=== PATIENT | male | born 1950 | race Caucasian/White ===

== ENCOUNTER → 2018-01-23 | Outpatient (REF) | payer MEDICARE | LOC: M SMT 12:46 | DX: R97.20 Elevated prostate specific antigen [PSA] (principal) | CPT/HCPCS: 87086 ==

== ENCOUNTER → 2018-02-05 | Outpatient (CLI) | payer MEDICARE | LOC: M SMT PRO 09:32 | DX: R97.20 Elevated prostate specific antigen [PSA] (principal) | CPT/HCPCS: G0416 ==

== ENCOUNTER → 2018-08-08 | Outpatient (REF) | payer MEDICARE ==
[2018-08-11 00:06] LABS: PSA % FREE 14.9 % (.); PSA FREE 1.07 ng/mL; PSA TOTAL 7.2 ng/mL (0.0-4.0)
== END ==
LOC: M LABDRAW1 16:04
PROVIDERS: ATTEND Urology
DX: R97.20 Elevated prostate specific antigen [PSA] (principal)

== ENCOUNTER → 2018-09-19 | Outpatient (REF) | payer MEDICARE ==
[2018-09-19 16:27] LABS: BLOOD UREA NITROGEN 14 MG/DL (7-18); CREATININE FOR GFR 0.88 MG/DL (0.70-1.30); GLOMERULAR FILTRATION RATE > 60.0 (>49)
== END ==
LOC: M LABDRAW1 15:36
PROVIDERS: ATTEND Orthopaedic Surgery
DX: Z01.812 Encounter for preprocedural laboratory examination (principal)

== ENCOUNTER → 2019-02-11 | Outpatient (CLI) | payer MEDICARE ==
[~2019-02-11] MED LIST: B COTAB3 PO; BEE1CAP PO; D200CAP2 PO; FINA5TAB2 PO; GLUC1CAP10 PO; IBUP200C25 PO; KRIL300C2 PO; SAW1CAPS2 PO; TAMS1CAP17 PO; VITA1CAP21 PO; super beta prostate PO
--- NOTE | 2019-02-11 14:19 | ECGEPIP ---
[facility] Test Date: 2019-02-11 Pat Name: DAVIE NELSON Department: Room: - Gender: Male Parish Visitor: JOY : 1950 Requested By: Laura Cohn Order Number: [id number] Reading MD: Yecenia Partida Measurements Intervals [place] Rate: 76 P: 47 NH: 176 QRS: -10 QRSD: 97 T: -8 QT: 378 QTc: 427 Interpretive Statements SINUS RHYTHM WITH SINUS ARRHYTHMIA STT-WAVE ABNORMALITY Left axis deviation PRWP NO PRIOR Electronically Signed on 02-11-2019 14:19:24 EDT by Yecenia Partida
--- NOTE | 2019-02-11 14:35 | REP ---
PA and lateral chest: There are no comparisons. Lung arguelles are clear. Cardiac size is normal. The rachel and mediastinum are unremarkable. The right hemidiaphragm is elevated. The rachel, mediastinum, skeletal structures are unremarkable. Impression: Elevated right hemidiaphragm. Otherwise, negative PA and lateral chest. Electronically Signed by Kirby Flyod MD 02/11/2019 02:26 P
[2019-02-11 14:40] LABS: HEMOGLOBIN 17.9 g/dl (13.5-17.5); MEAN CORPUSCULAR HEMOGLOBIN 33.4 pg (27.0-33.0); MEAN CORPUSCULAR HGB CONC 35.1 g/dl (32.0-36.5); MEAN CORPUSCULAR VOLUME 95.1 fl (80.0-96.0); PLATELET COUNT, AUTOMATED 217 10^3/uL (150-450); RED BLOOD COUNT 5.36 10^6/uL (4.30-6.10); WHITE BLOOD COUNT 8.7 10^3/uL (4.0-10.0)
[2019-02-11 14:52] LABS: INR 1.01
[2019-02-11 14:57] LABS: ALBUMIN 3.6 GM/DL (3.2-5.2); ALT/SGPT 42 U/L (12-78); BILIRUBIN,TOTAL 0.6 MG/DL (0.2-1.0); BLOOD UREA NITROGEN 17 MG/DL (7-18); CALCIUM LEVEL 9.3 MG/DL (8.8-10.2); CARBON DIOXIDE LEVEL 32 MEQ/L (21-32); CHLORIDE LEVEL 102 MEQ/L (98-107); CREATININE FOR GFR 0.81 MG/DL (0.70-1.30); GLOMERULAR FILTRATION RATE > 60.0 (>49); GLUCOSE, FASTING 90 MG/DL (70-100); SODIUM LEVEL 141 MEQ/L (136-145); TOTAL PROTEIN 6.8 GM/DL (6.4-8.2)
[2019-02-11 15:07] LABS: ERYTHROCYTE SEDIMENTATION RATE 2 mm/hr (0-20)
== END ==
LOC: M LAB 13:15
PROVIDERS: ATTEND Orthopaedic Surgery
DX: M17.11 Unilateral primary osteoarthritis, right knee (principal)

== ENCOUNTER → 2019-02-19 | Outpatient (CLI) | payer MEDICARE ==
[~2019-02-19] MED LIST changes: +PERC5TAB12 PO; +XARE10TA PO
[2019-02-21 14:09] LABS: PSA % FREE 10.2 % (.); PSA FREE 0.48 ng/mL; PSA TOTAL 4.7 ng/mL (0.0-4.0)
== END ==
LOC: M SMT 14:31
PROVIDERS: ATTEND Nurse Practitioner Family
DX: R97.20 Elevated prostate specific antigen [PSA] (principal)

== ENCOUNTER 2019-02-26 07:45 | Inpatient (IN) | payer MEDICARE ==
--- NOTE | 2019-02-24 11:35 | HPE ---
DATE OF ANTICIPATED ADMISSION: 02/26/2019 ATTENDING PHYSICIAN: Dr. Laura Malik CHIEF COMPLAINT: Right knee pain and stiffness. HISTORY: The patient is a 68-year-old male with progressively worsening right knee pain and stiffness. He has failed to improve with conservative measures. He continues to have symptoms with weightbearing activities and activities of daily living. The patient has consented for an elective right total knee arthroplasty with Dr. Malik for his continued symptoms. Medical optimization pending with Dr. Marshall. CURRENT MEDICATIONS: - glucosamine chondroitin 1500 mg complex - finasteride daily - B12 daily - fish oil daily - saw palmetto three times daily - tamsulosin 4 mg daily - vitamin D3 daily ALLERGIES: There are No known drug allergies CHRONIC MEDICAL CONDITIONS: Benign prostatic hypertrophy. FAMILY HISTORY: Noncontributory. SOCIAL HISTORY: The patient is a former smoker and occasionally uses alcohol. PAST SURGICAL HISTORY: None. REVIEW OF SYSTEMS: The patient denies fevers, chills, nausea, vomiting or diarrhea. Denies chest pain, shortness of breath, lightheadedness, dizziness or headaches. Denies abdominal pain. He denies any recent upper respiratory or urinary tract infection symptoms. He continues to have right knee pain with weightbearing activities and activities of daily living. PHYSICAL EXAMINATION: GENERAL: Well-nourished, well-developed male who appears to be in no apparent distress. He is alert, oriented and cooperative. Mood and affect are appropriate. VITAL SIGNS: Height 5 feet 10 inches, weight 216.4 pounds, temperature 99.3, blood pressure 140/80, heart rate 92, respirations 14. HEART: Regular rate and rhythm. LUNGS: Clear to auscultation bilaterally. ABDOMEN: Bowel sounds are present. Abdomen is soft and nontender to palpation. MUSCULOSKELETAL: Right knee exhibits no gross abnormalities. His skin is intact. There is quite a bit of tenderness to palpation along the medial joint line with a fairly large firm nodule present. The patient can extend knee to about 5 degrees and flex to 100 degrees. Right lower extremity strength is 5/5. No hip irritability elicited with range of motion testing. Calf is soft, nontender to palpation with no palpable cords noted. He is neurovascularly intact distally. LABORATORY DATA: Chest x-ray: Elevated right hemidiaphragm. Otherwise, negative PA and lateral chest. Right knee x-ray notable for end-stage degenerative changes. EKG: Sinus rhythm with sinus arrhythmia with ST-T wave abnormality and left axis deviation. Comprehensive metabolic profile fasting glucose 90, BUN 17, creatinine 0.81, GFR greater than 60, sodium 141, potassium 4.0, chloride 102, carbon dioxide 32, anion gap decreased at 7, calcium 9.3, AST 18, ALT 42, alkaline phosphatase 62, total bilirubin 0.6, total protein 6.8, albumin 3.6, albumin-globulin ratio 1.13. Prothrombin time 13, INR 1.01. Complete blood count ESR 2, WBC 8.7, RBC 5.36, hemoglobin elevated at 17.3, hematocrit 51, platelets 217. IMPRESSION: Right knee degenerative arthritis with x-rays notable for end-stage degenerative changes. PLAN: The patient has consented for an elective right total knee arthroplasty with Dr. Malik. Medical optimization pending with Dr. Marshall. VILLA
[~2019-02-26] VITALS: Ht 177.8 cm; Wt 97.7 kg
[~2019-02-26 07:45] MED LIST changes: +ACETAMINOPHEN 500 MG TAB PO ONE; +LIDOCAINE 1% MDV 20ML VIAL SQ PRN; +LR 1,000 ML IV ONE; -PERC5TAB12 PO; -XARE10TA PO; +ceFAZolin SOD 2 GM in IV 1 EA IV ONE
[2019-02-26] MEDS ORDERED: fentaNYL 100 MCG/2 ML INJECTION (J3010) As Ordered ONE ×2 (09:48→12:15)
[2019-02-26] MEDS ORDERED: MIDAZOLAM INJ 2 MG/2 ML VIAL (J2250) As Ordered ONE ×2 (09:48→12:15)
[2019-02-26] MEDS ORDERED: EPINEPHrine INJ 1 MG/ML 1ML VIAL As Ordered ONE (09:50)
[2019-02-26] MEDS ORDERED: BUPIVACAINE HCL 0.25% 10 ML VIAL As Ordered ONE (09:50)
[2019-02-26] MEDS ORDERED: TRANEXAMIC ACID 100 MG/ML 10ML VIAL As Ordered ONE (09:50)
[2019-02-26] MEDS ORDERED: ceFAZolin 1GM INJ (J0690 PER 500MG) As Ordered ONE (09:50)
[2019-02-26] MEDS ORDERED: BUPIVACAINE LIPOSOME/PF 1.3% 20ML VIAL (13.3MG/ML)(EXPAREL)(C9290 PER1MG) As Ordered ONE (09:51)
[2019-02-26] MEDS: fentaNYL 100 MCG/2 ML INJECTION (J3010) IV SCH ×2 (10:10→10:16)
[2019-02-26] MEDS ORDERED: dexameTHASONE 10 MG/1 ML VIAL PRES.FREE (J1100) ONE (10:47)
[2019-02-26] MEDS ORDERED: ROPIvacaine 0.5% 30 ML INJECTION (J2795 PER 1MG) ONE (10:47)
[2019-02-26] MEDS ORDERED: MIDAZOLAM INJ 2 MG/2 ML VIAL (J2250) IV ONE (11:00)
[2019-02-26] MEDS ORDERED: propofoL 200 MG/20 ML VIAL As Ordered ONE ×2 (12:15→13:02)
[2019-02-26] MEDS ORDERED: ePHEDrine SULFATE 25 MG/5 ML(5MG/ML) SYRINGE As Ordered ONE (12:38)
[2019-02-26] MEDS ORDERED: fentaNYL 100 MCG/2 ML INJECTION (J3010) IV PRN (14:15)
[2019-02-26] MEDS ORDERED: ONDANSETRON 4MG/2ML VIAL (J2405) IV PRN (14:15)
[2019-02-26] MEDS ORDERED: FLEET ENEMA PR PRN (14:15)
[2019-02-26] MEDS ORDERED: LR 1,000 ML IV SCH ×2 (14:15)
[2019-02-26] MEDS ORDERED: PERCOCET 5MG/325MG TAB PO PRN (14:15)
[2019-02-26] MEDS ORDERED: ACETAMINOPHEN TAB 650MG DOSE (2X325MG) PO PRN (14:15)
[2019-02-26] MEDS ORDERED: HYDROMORPHONE HCL 0.5 MG/ 0.5 ML SYRINGE (J1170 PER 1) IV PRN ×2 (14:15)
--- NOTE | 2019-02-26 14:48 | REP ---
RIGHT KNEE SERIES: TWO VIEWS. HISTORY: Postop. FINDINGS: The patient is status post right knee arthroplasty. Arthroplasty components are well aligned. There is some intra-articular and periarticular postoperative gas. Anterior skin virginie are seen. Posterior vascular calcification is noted. IMPRESSION: Right knee arthroplasty. Electronically Signed by Earl Ivory MD 02/26/2019 03:28 P
[2019-02-26 15:00] VITALS: BP 125/81
[2019-02-26 15:30] VITALS: BP 125/83
[2019-02-26] MEDS ORDERED: ONDANSETRON 4 MG TAB (S0181) PO PRN (16:15)
[2019-02-26 16:30] VITALS: BP 127/94
[2019-02-26] MEDS: FINASTERIDE 5 MG TAB PO SCH (16:33)
[2019-02-26] MEDS: TAMSULOSIN 0.4 MG CAP PO SCH (16:33)
[2019-02-26 17:30] VITALS: BP 127/95
--- NOTE | 2019-02-26 17:52 | CR ---
DATE OF CONSULTATION: 02/26/2019 CONSULTATION FOR: Dr. Lalit Malik PRIMARY CARE PROVIDER: Dr. Kaushik Marshall in [place] Medical evaluation of Louis Royal, a 68-year-old who had total knee arthroplasty today. Reviewed the patient's medical records as available from Dr. Marshall. Medical history is essentially uncomplicated. History of hypertension and elevated prostate-specific antigen (PSA). HOME MEDICATIONS: - vitamin D 2000 units daily - finasteride 5 mg daily - tamsulosin 0.4 mg daily - B12 at 500 mg daily - over-the counter vitamins SURGICAL HISTORY: He had a colonoscopy in the past. FAMILY HISTORY: Diabetes, heart disease, and prostate cancer. SOCIAL HISTORY: Quit smoking a few years ago after over a 20 pack-year history. REVIEW OF SYSTEMS: No chest pain, shortness of breath, palpitations, fevers, chills, rectal bleeding, epistaxis, hematuria. He does have BPH symptoms with slow stream, and his PSA has apparently gone from 7 up to 8 and has a urology referral in process by his primary care provider. PHYSICAL EXAMINATION: VITAL SIGNS: Per flow sheet. HEENT: Unremarkable. LUNGS: Clear. HEART: Regular without murmur. ABDOMEN: Soft, nontender without masses. Moves arms and legs with equal strength. IMPRESSION: 1. BPH. Early ambulation when feasible advised. Continue his Flomax 0.4 mg daily, finasteride 5 mg daily. 2. History of hypertension. He is on no antihypertensives at this point. Hospital group will follow him postoperatively.
[2019-02-26] MEDS: PERCOCET 5MG/325MG TAB PO PRN ×2 (18:05→22:44)
[2019-02-26 18:30] VITALS: BP_SYST 127; BP_SYST 130; BP_DIAS 94; BP_DIAS 95
[2019-02-26] MEDS: ceFAZolin SOD 2 GM in IV 1 EA IV SCH (20:39)
[2019-02-26 22:13] VITALS: BP 156/90
[2019-02-27 02:11] VITALS: BP 156/93
[2019-02-27] MEDS: ceFAZolin SOD 2 GM in IV 1 EA IV SCH ×2 (04:05→11:40)
[2019-02-27] MEDS: PERCOCET 5MG/325MG TAB PO PRN ×2 (04:54→09:21)
[2019-02-27 06:06] LABS: HEMATOCRIT 47.4 % (42.0-52.0); HEMOGLOBIN 16.5 g/dl (13.5-17.5); MEAN CORPUSCULAR HEMOGLOBIN 33.7 pg (27.0-33.0); MEAN CORPUSCULAR HGB CONC 34.8 g/dl (32.0-36.5); MEAN CORPUSCULAR VOLUME 96.7 fl (80.0-96.0); PLATELET COUNT, AUTOMATED 172 10^3/uL (150-450); WHITE BLOOD COUNT 15.3 10^3/uL (4.0-10.0)
[2019-02-27 06:26] LABS: BLOOD UREA NITROGEN 13 MG/DL (7-18); CALCIUM LEVEL 8.5 MG/DL (8.8-10.2); CARBON DIOXIDE LEVEL 32 MEQ/L (21-32); CHLORIDE LEVEL 103 MEQ/L (98-107); CREATININE FOR GFR 0.78 MG/DL (0.70-1.30); GLOMERULAR FILTRATION RATE > 60.0 (>49); GLUCOSE, FASTING 119 MG/DL (70-100); POTASSIUM SERUM 4.4 MEQ/L (3.5-5.1); SODIUM LEVEL 139 MEQ/L (136-145)
[2019-02-27 06:56] VITALS: BP 155/92
[2019-02-27] MEDS ORDERED: PERC5TAB12 PO (07:18)
[2019-02-27] MEDS ORDERED: XARE10TA PO (07:18)
[2019-02-27] MEDS ORDERED: MOM 30ML SUSPENSION UDC PO SCH (09:00)
[2019-02-27] MEDS ORDERED: MIRALAX *UNIT DOSE* 17GM PACKET PO SCH (09:00)
[2019-02-27] MEDS: TAMSULOSIN 0.4 MG CAP PO SCH (09:20)
[2019-02-27] MEDS: FINASTERIDE 5 MG TAB PO SCH (09:20)
--- NOTE | 2019-02-27 11:17 | RO ---
DATE OF PROCEDURE: 02/26/2019 PREPROCEDURE DIAGNOSIS: Right knee degenerative arthritis. Right knee mass medial aspect of right knee. POSTPROCEDURE DIAGNOSIS: Right knee degenerative arthritis. Right knee mass medial aspect of right knee. PROCEDURE: 1. Right total knee arthroplasty using a Size 6 Attune cruciate retaining femoral component with a Size 7 tibial tray and a 6 mm rotating platform polyethylene insert and a 38 mm polyethylene button. All components were cemented. Prosthesis made by [employer]. 2. Excisional biopsy of a large medial mass of the right knee. SURGEON: Dr. Laura Malik GROUNDS MANAGER: Mr. Chris Doran COMPLICATIONS: None. SPECIMEN: Material from the mass which appeared to be a ganglion type cyst. Otherwise the specimens were the joint surface. ESTIMATED BLOOD LOSS: 20 mL. DESCRIPTION OF PROCEDURE: Antibiotics were given intravenously preoperatively and a successful spinal anesthetic was induced. A tourniquet placed on the right upper thigh and not inflated. The right lower extremity was carefully prepped and draped in the usual sterile fashion, elevated after appropriate time out and the tourniquet was inflated. A longitudinal incision was made for a medial parapatellar arthrotomy approach to the knee. Bovie cautery used to coagulate crossing vessels. Subperiosteal dissection around the proximal medial portion of the tibia was performed as well as the proximal lateral portion of the tibia. The patella was everted, the knee flexed. The anterior cruciate ligament (ACL) debrided. The drill placed down the center of the femoral canal, followed by the intramedullary enrique and the distal femoral cutting jig set at 9 mm resection level at 5 degrees valgus for a right knee. The block was pinned into position. Distal femoral cut performed. AP sizing jig measured for a size 6. Then 3 degrees of external rotation dialed in, drills placed, 4-in-1 block applied. Anterior, posterior, and chamfer cuts performed. The jig for the notchplasty was applied and the notchplasty performed. We then exposed the proximal tibia and used the extramedullary alignment jig to estimate being parallel to the mechanical axis of the tibia, referencing off the medial tibial condyle at 4 mm. The block was pinned into position. Secondary check of the extramedullary enrique confirmed we appeared to be parallel to the mechanical axis. A proximal tibial osteotomy was thus performed. The lamina gas or petroleum operator was placed medially and we performed a completion lateral meniscectomy with debridement of posterior lateral osteophytes. We then placed the lamina gas or petroleum operator laterally and performed a completion medial meniscectomy with debridement of posterior medial osteophytes. The sizing block fit nicely at 6 mm with good symmetry both in flexion and in extension. We then exposed the proximal tibia and sized for a size 7 tibial tray, which was pinned into positioned, followed by the reamer and broach, followed by the trial polyethylene. Then the femoral component was applied. We brought the knee into extension. He had nice stability to varus and valgus stress testing. We everted the patella of the knee in extension and performed a patellar osteotomy and sized for a 38 button. Lug holes were drilled, the trial placed and patellofemoral tracking was anatomic. At this point, I removed all the trial components and then addressed the cyst. At this point, I palpated along the medial soft tissues just off the previously subperiosteal dissected proximal medial tibia and made a small longitudinal incision just anterior the medial collateral ligament (MCL). By incising this area, I came down into a large cystic structure that was filled with gelatinous material. This was removed with a combination of rongeurs and curettes and digital palpation as well as suction irrigation. Some of this material was sent for formal pathologic diagnosis. This well decompressed the medial cyst. It was likely some type of a variant of a popliteal cyst. It was gelatinous material consistent with a ganglion. I copiously irrigated and then at this point we placed Exparel in the subperiosteal tissues around the distal femur and the proximal tibia as my nurse's assistant, Andreea Payne, mixed the cement on the back table and I prepared the bony surfaces for cementing with a copious amount of pulsatile lavage irrigant solution. Mr. Doran was also critical to the success of this difficult surgery by helping with appropriate soft tissue manipulations, retraction, helped to manipulate the knee, helped to close the wound, and mixed the cement amongst many other tasks to allow me to perform the operation smoothly, efficiently and safely. Once all the bony surfaces were thoroughly dry, we cemented the tibial tray, removed excess cement, placed the polyethylene, cemented the femoral component, removed excess cement, brought the knee into extension, cemented the patellar button, and held it with a clamp, then removed excess cement, and held the knee in extension while we copiously irrigated the knee joint until the cement had hardened. We placed tranexamic acid in the depths of the wound and closed the arthrotomy with interrupted #1 PDS sutures and then a running double-armed #1 Stratafix used to close the capsule. Then the tourniquet was released. We irrigated between layers. We closed the deep subdermal tissues with interrupted #2-0 PDS suture and the skin was closed with virginie, covered by an Optifoam dressing and a dry sterile bulky dressing. Then he was transferred to the recovery room in stable condition. There were no intraoperative complications.
[2019-02-27] MEDS ORDERED: RIVAROXABAN 10 MG TAB (XARELTO) PO SCH (18:00)
--- NOTE | 2019-03-04 10:48 | DSES ---
DATE OF ADMISSION: 02/26/2019 DATE OF DISCHARGE: 02/27/2019 ADMISSION DIAGNOSIS: Osteoarthritis right knee. OTHER DIAGNOSES: Hypertension. DISCHARGE DIAGNOSIS: Osteoarthritis right knee status post right total knee arthroplasty. OPERATION PERFORMED: Right total knee arthroplasty. HISTORY: This is a pleasant 68-year-old male patient with progressively worsening right knee pain and stiffness. He failed to improve with conservative management. He is admitted for elective knee replacement on the right side. HOSPITAL COURSE: The patient was admitted on day of surgery underwent a right total knee arthroplasty, which was uneventful. He did well in the postoperative period. His hospital course was without complications. He was up with physical therapy per their protocol. His pain was controlled. On day of discharge, he was doing well, weightbearing as tolerated with his right lower extremity. He will move his right knee to prevent stiffness. He will use CINDY stockings for 30 days postoperative for deep vein thrombosis (DVT) prophylaxis. He will also use Xarelto 10 mg per their protocol for DVT prophylaxis. He will use oral pain medications for pain control and resume his preoperative medications and diet. He was given instructions to include, but not limited to wound monitoring, activity limitations. Please refer the medical record further details.
== END 2019-02-27 13:00 | disposition home or self-care (01) | DRG 470 ==
LOC: M OR 07:45 → M MS5PR 14:50
PROVIDERS: ADMIT Orthopaedic Surgery; ATTEND Orthopaedic Surgery
PROC: 0SBC0ZX Excision of Right Knee Joint, Open Approach, Diagnostic (ICD-10-PCS; 2019-02-26)
PROC: 0SRC0J9 Replacement of Right Knee Joint with Synthetic Substitute, Cemented, Open Approach (ICD-10-PCS; principal; 2019-02-26 10:50)
DX: M17.11 Unilateral primary osteoarthritis, right knee (principal); I10 Essential (primary) hypertension; M67.461 Ganglion, right knee; N40.1 Benign prostatic hyperplasia with lower urinary tract symptoms; R39.198 Other difficulties with micturition; Z87.891 Personal history of nicotine dependence; Z79.899 Other long term (current) drug therapy

== ENCOUNTER → 2019-03-05 | Outpatient (CLI) | payer MEDICARE ==
[~2019-03-05] MED LIST changes: -ACETAMINOPHEN 500 MG TAB PO ONE; -LIDOCAINE 1% MDV 20ML VIAL SQ PRN; -LR 1,000 ML IV ONE; +PERC5TAB12 PO; +XARE10TA PO; -ceFAZolin SOD 2 GM in IV 1 EA IV ONE
--- NOTE | 2019-03-05 11:51 | REP ---
Right lower extremity deep vein duplex ultrasound: The patient had right knee surgery 1 week ago. The deep veins demonstrate normal compression, normal Doppler color flow and normal Doppler waveforms with respiration and augmentation from the popliteal vein to the common femoral vein. Impression: There is no deep vein thrombus. Electronically Signed by Kirby Floyd MD 03/05/2019 11:43 A
== END ==
LOC: M RAD 09:29
PROVIDERS: ATTEND Orthopaedic Surgery
DX: M79.604 Pain in right leg (principal)

== ENCOUNTER → 2019-03-21 | Outpatient (REF) | payer MEDICARE ==
[2019-03-21 15:34] LABS: BASO # 0.1 10^3/uL (0.0-0.2); BASO % 0.8 % (0.0-1.0); EOS # 0.3 10^3/uL (0.0-0.5); EOS % 2.7 % (0.0-3.0); HEMATOCRIT 46.6 % (42.0-52.0); HEMOGLOBIN 15.4 g/dl (13.5-17.5); LYMPH # 1.5 10^3/uL (1.5-5.0); LYMPH % 14.8 % (24.0-44.0); MEAN CORPUSCULAR HEMOGLOBIN 31.9 pg (27.0-33.0); MEAN CORPUSCULAR VOLUME 96.5 fl (80.0-96.0); MONO % 9.7 % (0.0-5.0); NEUTROPHILS % 71.3 % (36.0-66.0); PLATELET COUNT, AUTOMATED 322 10^3/uL (150-450); RED BLOOD COUNT 4.83 10^6/uL (4.30-6.10); WHITE BLOOD COUNT 9.8 10^3/uL (4.0-10.0)
[2019-03-21 16:29] LABS: ERYTHROCYTE SEDIMENTATION RATE 21 mm/hr (0-20)
== END ==
LOC: M LABDRAW1 11:52
DX: Z96.651 Presence of right artificial knee joint (principal)

== ENCOUNTER → 2019-05-21 | Outpatient (CLI) | payer MEDICARE ==
--- NOTE | 2019-05-21 16:13 | REP ---
Two-view chest: 05/21/2019. Indications. Wheezing. Comparison: 02/11/2019. Findings: The lungs are clear. There is no pleural effusion or pneumothorax. Elevated right hemidiaphragm is redemonstrated. The cardiomediastinal silhouette is unremarkable. Mild dextroscoliosis of the thoracic spine is noted. Impression: No acute cardiopulmonary process. Electronically Signed by Mehran Smith DO 05/21/2019 04:04 P
== END ==
LOC: M WUC 15:50
PROVIDERS: ATTEND Nurse Practitioner Family
DX: R06.2 Wheezing (principal)

== ENCOUNTER → 2019-07-10 | Outpatient (REF) | payer MEDICARE ==
[2019-07-10 17:57] LABS: HEMATOCRIT 52.2 % (42.0-52.0); HEMOGLOBIN 17.8 g/dl (13.5-17.5); MEAN CORPUSCULAR HEMOGLOBIN 31.7 pg (27.0-33.0); MEAN CORPUSCULAR HGB CONC 34.1 g/dl (32.0-36.5); PLATELET COUNT, AUTOMATED 246 10^3/uL (150-450); RED BLOOD COUNT 5.61 10^6/uL (4.30-6.10); WHITE BLOOD COUNT 9.5 10^3/uL (4.0-10.0)
[2019-07-10 17:59] LABS: ALBUMIN 3.8 GM/DL (3.2-5.2); ALT/SGPT 46 U/L (12-78); BILIRUBIN,TOTAL 0.6 MG/DL (0.2-1.0); BLOOD UREA NITROGEN 12 MG/DL (7-18); CALCIUM LEVEL 9.3 MG/DL (8.8-10.2); CARBON DIOXIDE LEVEL 33 MEQ/L (21-32); CHLORIDE LEVEL 101 MEQ/L (98-107); CREATININE FOR GFR 0.82 MG/DL (0.70-1.30); GLOMERULAR FILTRATION RATE > 60.0 (>49); GLUCOSE, FASTING 89 MG/DL (70-100); POTASSIUM SERUM 4.3 MEQ/L (3.5-5.1); SODIUM LEVEL 139 MEQ/L (136-145); TOTAL PROTEIN 7.1 GM/DL (6.4-8.2)
== END ==
LOC: M SFHCLERA 13:55
PROVIDERS: ATTEND Physician Assistant
DX: R03.0 Elevated blood-pressure reading, without diagnosis of hypertension (principal)

== ENCOUNTER → 2019-07-16 | Outpatient (CLI) | payer MEDICARE | LOC: M PLALAB 13:01 | PROVIDERS: ATTEND Nurse Practitioner Family | DX: R97.20 Elevated prostate specific antigen [PSA] (principal) ==

== ENCOUNTER → 2019-07-22 | Outpatient (REF) | payer MEDICARE | LOC: M SMT 16:55 | PROVIDERS: ATTEND Nurse Practitioner Family | DX: R97.20 Elevated prostate specific antigen [PSA] (principal); Z79.899 Other long term (current) drug therapy | CPT/HCPCS: 51798; 87086; G0463 ==

== ENCOUNTER → 2019-07-31 | Outpatient (CLI) | payer MEDICARE ==
--- NOTE | 2019-07-31 12:13 | REP ---
Bilateral lower extremity duplex venous ultrasound: Reflux study. History: Rule out venous reflux or DVT. Findings: The deep veins are anechoic and fully compressible from the groin to the popliteal fossa in both lower extremities on two-dimensional scanning. Color flow and spectral Doppler interrogation are unremarkable. There is no evidence of DVT. Reflux findings: In the right lower extremity, there is venous reflux visible only in the standing position in the mid and distal segments of the greater saphenous vein. There is mild reflux greater than 0.5 seconds in duration in the anterior accessory greater saphenous vein. The greater saphenous vein measures 10 mm in AP dimension proximally, 5 mm in AP dimension at midthigh, and 5 mm in AP dimension at the knee. The lesser saphenous vein shows no evidence of reflux and measures 2 mm in dimension. On the left there is minimal reflux in the deep system in the common femoral vein and through the superficial femoral vein and popliteal vein. No reflux is visible in the greater saphenous vein. The greater saphenous vein dimensions are 9 mm, 5 mm, and 4 mm respectively, proximally, mid thigh, and distally. The lesser saphenous vein is 3 mm in diameter and shows no observable reflux. Impression: Minimal deep system reflux on the left. The greater saphenous vein reflux at mid and distal levels on the right. Electronically Signed by Earl Ivory MD 07/31/2019 01:08 P
== END ==
LOC: M RAD 09:52
PROVIDERS: ATTEND Family Medicine
DX: I87.2 Venous insufficiency (chronic) (peripheral) (principal); M79.89 Other specified soft tissue disorders

== ENCOUNTER → 2019-08-13 | Outpatient (CLI) | payer MEDICARE ==
--- NOTE | 2019-08-13 16:40 | REP ---
KUB ABDOMEN AND PELVIS: KUB film of abdomen and pelvis performed. Bowel gas pattern is normal with no evidence of obstruction. No dilated small bowel loops are seen. Mild scattered vascular calcifications are seen in the pelvis. There are mild degenerative changes of the spine and hips. IMPRESSION: Normal bowel gas pattern. Electronically Signed by Kirby Smith MD 08/14/2019 10:33 A
--- NOTE | 2019-08-13 16:42 | REP ---
CHEST, TWO VIEWS: PA and lateral views of the chest are performed and compared to prior study of 05/21/2019. There is mild elevation of the right hemidiaphragm, unchanged. There is mild thickening of the fissures posteriorly, unchanged. Heart is not enlarged. There is calcification and tortuosity of the thoracic aorta. Mediastinal silhouette is unchanged. There are mild degenerative changes of the spine. IMPRESSION: Stable chronic findings without evidence of acute pulmonary disease. Electronically Signed by Kirby Smith MD 08/14/2019 10:33 A
== END ==
LOC: M LRY 12:24
PROVIDERS: ATTEND Family Medicine
DX: R06.02 Shortness of breath (principal)

== ENCOUNTER → 2019-10-23 | Outpatient (CLI) | payer MEDICARE | LOC: M LAB 16:07 | PROVIDERS: ATTEND Nurse Practitioner Family | DX: R97.20 Elevated prostate specific antigen [PSA] (principal) ==

== ENCOUNTER → 2020-02-24 | Outpatient (CLI) | payer MEDICARE ==
--- NOTE | 2020-03-16 14:16 | REP ---
LUMBAR SPINE SERIES: CLINICAL: Lower back pain. TECHNIQUE: AP, lateral, bilateral oblique and coned down views of the lumbosacral spine. FINDINGS: Retrolisthesis at the L5-S1 level is suggested of approximately 12 mm, but incompletely evaluated due to positioning. There is normal alignment and lordosis from the lower thoracic through L5 level. Underlying age related osteopenia and moderate multilevel degenerative changes including endplate sclerosis with marginal spurring and disc space narrowing primarily noted at L4- 5. The L5-S1 level appears completely obliterated and with retrolisthesis as suggested above. No further acute fracture/compression injury or subluxation noted. IMPRESSION: Findings suggest grade 2 retrolisthesis at the L5-S1 level, although evaluation is limited by technique and positioning. Correlation is warranted and if necessary, MRI should be considered for further investigation. MTDD
== END ==
LOC: M LRY 15:12
PROVIDERS: ATTEND Family Medicine
DX: M51.36 Other intervertebral disc degeneration, lumbar region (principal); M54.5 Low back pain

== ENCOUNTER → 2020-08-16 | Outpatient (CLI) | payer MEDICARE, OTHER ==
--- NOTE | 2020-08-16 14:59 | REP ---
INDICATION: PARESTHESIA . COMPARISON: None. TECHNIQUE: AP, lateral, flexion/extension, and open-mouth views of the cervical spine FINDINGS: Osteopenia and moderate to advanced multilevel degenerative spondylosis. Alignment is maintained. No acute fracture/compression injury or subluxation. IMPRESSION: Osteopenia and moderate to advanced multilevel degenerative spondylosis. <Electronically signed by Carlos Smith > 08/16/20 [id number]
[2020-08-16 15:05] LABS: APPEARANCE, URINE CLEAR (CLEAR); BACTERIA, URINE AUTO NEGATIVE (NEGATIVE); BILIRUBIN, URINE AUTO NEGATIVE (NEGATIVE); BLOOD, URINE BLOOD NEGATIVE (NEGATIVE); COLOR, URINE YELLOW (YELLOW); GLUCOSE, URINE (UA) AUTO NEGATIVE (NEGATIVE); KETONE, URINE AUTO NEGATIVE (NEGATIVE); LEUKOCYTE ESTERASE, URINE AUTO TRACE (NEGATIVE); NITRITE, URINE AUTO NEGATIVE (NEGATIVE); PROTEIN, URINE AUTO NEGATIVE (NEGATIVE); RBC, URINE AUTO 2 /HPF (0-3); SPECIFIC GRAVITY URINE AUTO 1.012 (1.002-1.035); SQUAMOUS EPITHELIAL CELL UR AU 0 /HPF (0-6); UROBILINOGEN, URINE AUTO 0.2 mg/dL (0.0-2.0); WBC, URINE AUTO 1 /HPF (0-3)
[2020-08-16 15:08] LABS: BASO # 0.1 10^3/uL (0.0-0.2); BASO % 1.1 % (0.0-1.0); EOS # 0.4 10^3/uL (0.0-0.5); EOS % 4.2 % (0.0-3.0); HEMATOCRIT 50.8 % (42.0-52.0); HEMOGLOBIN 17.5 g/dl (13.5-17.5); LYMPH # 1.6 10^3/uL (1.5-5.0); LYMPH % 17.7 % (24.0-44.0); MEAN CORPUSCULAR HEMOGLOBIN 32.1 pg (27.0-33.0); MEAN CORPUSCULAR HGB CONC 34.4 g/dl (32.0-36.5); MONO # 1.1 10^3/uL (0.0-0.8); MONO % 12.7 % (2.0-8.0); NEUTROPHILS # 5.6 10^3/uL (1.5-8.5); NEUTROPHILS % 63.7 % (36.0-66.0); PLATELET COUNT, AUTOMATED 204 10^3/uL (150-450); RED BLOOD COUNT 5.46 10^6/uL (4.30-6.10); WHITE BLOOD COUNT 8.8 10^3/uL (4.0-10.0)
[2020-08-16 15:33] LABS: BLOOD UREA NITROGEN 15 MG/DL (7-18); CALCIUM LEVEL 9.4 MG/DL (8.8-10.2); CARBON DIOXIDE LEVEL 32 MEQ/L (21-32); CHLORIDE LEVEL 103 MEQ/L (98-107); GLOMERULAR FILTRATION RATE > 60.0 (>42); GLUCOSE, FASTING 81 MG/DL (70-100); POTASSIUM SERUM 4.1 MEQ/L (3.5-5.1); SODIUM LEVEL 138 MEQ/L (136-145)
[2020-08-16 15:43] LABS: CREATININE, URINE 77.7 MG/DL; MALB URINE SIEMENS < 5.0 MG/L; MAU/CREAT RATIO 6.4 MCG/MG (0.0-30.0)
[2020-08-18 15:07] LABS: Lyme Disease IgG/IgM Antibodie <0.91 ISR (0.00-0.90); Lyme Disease IgM Ab Quantitati <0.80 index (0.00-0.79)
== END ==
LOC: M LAB 14:06
PROVIDERS: ATTEND Family Medicine
DX: I10 Essential (primary) hypertension (principal); W57.XXXA Bitten or stung by nonvenomous insect and other nonvenomous arthropods, initial encounter; R20.2 Paresthesia of skin; M47.812 Spondylosis without myelopathy or radiculopathy, cervical region

== ENCOUNTER → 2020-09-09 | Outpatient (CLI) | payer OTHER ==
[2020-09-14 00:08] LABS: PSA % FREE 11.1 % (.); PSA FREE 0.5 ng/mL; PSA TOTAL 4.5 ng/mL (0.0-4.0)
== END ==
LOC: M LAB 13:20
PROVIDERS: ATTEND Nurse Practitioner Family
DX: R97.20 Elevated prostate specific antigen [PSA] (principal)
CPT/HCPCS: 36415; 84154; G0463

== ENCOUNTER → 2021-05-11 | Outpatient (CLI) | payer OTHER ==
[~2021-05-11] MED LIST changes: +ACET-910 PO; +D31000TA2 PO; +HYDR-3713 PO; +LOSA25TA13 PO; +LUTE20CA11 PO; +OMEG350C PO; +OSTE5TAB PO; +RA S160C PO; +testosterone booster
[2021-05-16 23:07] LABS: PSA % FREE 11.3 % (.); PSA FREE 0.53 ng/mL; PSA TOTAL 4.7 ng/mL (0.0-4.0)
== END ==
LOC: M LAB 16:18
PROVIDERS: ATTEND Urology
DX: R97.20 Elevated prostate specific antigen [PSA] (principal)
CPT/HCPCS: 36415; 84154; G0463

== ENCOUNTER → 2021-05-17 | Outpatient (CLI) | payer OTHER | LOC: M RAD 13:45 | PROVIDERS: ATTEND Family Medicine | DX: M85.88 Other specified disorders of bone density and structure, other site (principal); M50.321 Other cervical disc degeneration at C4-C5 level; R20.2 Paresthesia of skin; R20.0 Anesthesia of skin ==

== ENCOUNTER → 2021-05-17 | Outpatient (CLI) | payer OTHER ==
[2021-05-17 15:40] LABS: HEMATOCRIT 51.8 % (42.0-52.0); HEMOGLOBIN 17.7 g/dl (13.5-17.5); MEAN CORPUSCULAR HEMOGLOBIN 32.5 pg (27.0-33.0); MEAN CORPUSCULAR HGB CONC 34.2 g/dl (32.0-36.5); PLATELET COUNT, AUTOMATED 200 10^3/uL (150-450); RED BLOOD COUNT 5.45 10^6/uL (4.30-6.10)
[2021-05-17 15:50] LABS: INR 1.03; PROTHROMBIN TIME 13.9 SECONDS (12.7-14.5)
[2021-05-17 16:16] LABS: ALBUMIN 3.6 GM/DL (3.2-5.2); ALT/SGPT 41 U/L (12-78); BILIRUBIN,TOTAL 0.6 MG/DL (0.2-1.0); BLOOD UREA NITROGEN 15 MG/DL (7-18); CALCIUM LEVEL 9.4 MG/DL (8.8-10.2); CARBON DIOXIDE LEVEL 32 MEQ/L (21-32); CHLORIDE LEVEL 102 MEQ/L (98-107); GLOMERULAR FILTRATION RATE > 60.0 (>42); GLUCOSE, FASTING 84 MG/DL (70-100); POTASSIUM SERUM 3.8 MEQ/L (3.5-5.1); SODIUM LEVEL 140 MEQ/L (136-145); TOTAL PROTEIN 7.1 GM/DL (6.4-8.2)
[2021-05-17 16:36] LABS: ERYTHROCYTE SEDIMENTATION RATE 6 mm/hr (0-20)
== END ==
LOC: M RAD 13:34
PROVIDERS: ATTEND Orthopaedic Surgery
DX: Z01.818 Encounter for other preprocedural examination (principal); M16.12 Unilateral primary osteoarthritis, left hip; M85.88 Other specified disorders of bone density and structure, other site; M50.321 Other cervical disc degeneration at C4-C5 level; R20.2 Paresthesia of skin; R20.0 Anesthesia of skin

== ENCOUNTER → 2021-05-28 | Outpatient (CLI) | payer OTHER ==
[~2021-05-28] MED LIST changes: -ACET-910 PO; -HYDR-3713 PO; -LOSA25TA13 PO; +LOSA25TA14 PO; -LUTE20CA11 PO; -OMEG350C PO; -OSTE5TAB PO; -RA S160C PO; -testosterone booster
== END ==
LOC: M LABSMTC 09:53
PROVIDERS: ATTEND Anesthesiology
DX: Z01.812 Encounter for preprocedural laboratory examination (principal)

== ENCOUNTER 2021-06-02 09:15 | Day surgery (SDC) | payer OTHER ==
[~2021-06-02] VITALS: Ht 177.8 cm; Wt 102.1 kg
[~2021-06-02 09:15] MED LIST changes: +DUOVISC (0.50ML VISCOAT/0.85ML PROVISC) OPHTH KIT As Ordered ONE; +LIDOCAINE 1% SDV 5ML VIAL As Ordered ONE; +LR 1,000 ML IV SCH; +MAXITROL OPHTH SUSP 5 ML As Ordered ONE; +UNRESOLVED CLARIFICATION ENTRY XX SCH
[2021-06-02] MEDS ORDERED: XARE10TA PO (09:27)
[2021-06-02] MEDS ORDERED: HYDR-3713 PO (09:27)
[2021-06-02] MEDS: TETRACAINE 0.5% OPHTH SOLN 4ML OD SCH ×2 (09:53→09:54)
[2021-06-02] MEDS: CYCLOPENTOLATE 1% OPHTH SOLN 2 ML BTL OD SCH ×3 (09:54→10:19)
[2021-06-02] MEDS: FLURBIPROFEN 0.03% OPHTH SOLN 2.5 ML OD SCH ×3 (09:54→10:19)
[2021-06-02] MEDS: PHENYLEPHRINE 2.5% OPHTH SOL 2ML OD SCH ×3 (09:54→10:19)
[2021-06-02] MEDS ORDERED: MIDAZOLAM INJ 2MG/2ML VIAL (J2250 PER 1MG) As Ordered ONE (10:11)
[2021-06-02] MEDS ORDERED: fentaNYL 100 MCG/2 ML INJECTION (J3010) As Ordered ONE (10:12)
[2021-06-02] MEDS ORDERED: MAXITROL OPHTH SUSP 5 ML As Ordered ONE ×2 (11:09→11:27)
[2021-06-02 12:00] VITALS: BP 155/87
--- NOTE | 2021-06-02 16:03 | ROOPDOC ---
[facility] Report Of Operation Report of Operation DATE OF PROCEDURE: 06/02/21 PREPROCEDURE DIAGNOSES: Cataract right eye. POSTPROCEDURE DIAGNOSES: Same. PROCEDURE PERFORMED: Cataract extraction with intraocular lens implantation right eye. SURGEON: Rashi Akhtar MD DRAIN CLEANER PLUMBER: None ANESTHESIA: Local ESTIMATED BLOOD LOSS: None. COMPLICATIONS: None. SPECIMENS REMOVED: None DESCRIPTION OF PROCEDURE: The patient was brought to the operating room and prepped and draped in the usual sterile fashion and an eyelid speculum was inserted in the right eye. A paracentesis was made and the anterior chamber was inflated with non-preserved lidocaine. This was followed by injection of Viscoat. A groove was made in the temporal clear cornea which was tunneled forward with the crescent blade and the anterior chamber was entered with a 2.75 keratome. The cystotome was used to make an incision in the center of the capsule and a continuous curvilinear capsulorhexis was created. The lens was hydrodissected until it was found to rotate freely within the capsular bag. Phacoemulsification was then used to remove the lens in its entirety. Irrigation and aspiration were used to remove residual cortical material. The anterior chamber and capsular bag were reinflated with Provisc and a 20.0 diopter SN60AT lens was injected into the capsular bag using the [place] injector. The lens was dialed into place using the [place] hook. Irrigation and aspiration were used to remove residual viscoelastic. The wound was stromally hydrated until it was found to be watertight and the eye was at an appropriate pressure. The eyelid speculum was removed from the eye and Maxitrol drops were placed over the right eye. The patient was transferred to the recovery room in stable condition and will follow up tomorrow. The total CDE was 21.0 RASHI AKHTAR MD Jun 02, 2021 16:03
== END 2021-06-02 12:14 | disposition home or self-care (01) ==
LOC: M SDC 09:15
PROVIDERS: ATTEND Ophthalmology
DX: H25.9 Unspecified age-related cataract (principal); I49.9 Cardiac arrhythmia, unspecified; I10 Essential (primary) hypertension; N40.0 Benign prostatic hyperplasia without lower urinary tract symptoms; Z87.81 Personal history of (healed) traumatic fracture; Z79.899 Other long term (current) drug therapy
CPT/HCPCS: 66984; J2250; J3010; V2632

== ENCOUNTER → 2021-07-23 | Outpatient (CLI) | payer OTHER ==
[~2021-07-23] MED LIST changes: +ACET-910 PO; -DUOVISC (0.50ML VISCOAT/0.85ML PROVISC) OPHTH KIT As Ordered ONE; +HYDR-3713 PO; -LIDOCAINE 1% SDV 5ML VIAL As Ordered ONE; +LOSA25TA13 PO; -LOSA25TA14 PO; -LR 1,000 ML IV SCH; +LUTE20CA11 PO; -MAXITROL OPHTH SUSP 5 ML As Ordered ONE; +OMEG350C PO; +OSTE5TAB PO; +RA S160C PO; -UNRESOLVED CLARIFICATION ENTRY XX SCH; +testosterone booster
== END ==
LOC: M LABSMTC 11:11
PROVIDERS: ATTEND Anesthesiology
DX: Z01.812 Encounter for preprocedural laboratory examination (principal); Z11.52 Encounter for screening for COVID-19

== ENCOUNTER 2021-07-28 11:27 | Day surgery (SDC) | payer OTHER ==
[~2021-07-28] VITALS: Ht 177.8 cm; Wt 100.9 kg
[~2021-07-28 11:27] MED LIST changes: +LIDOCAINE 1% SDV 5ML VIAL As Ordered ONE; +LR 1,000 ML IV SCH; +MIDAZOLAM INJ 2MG/2ML VIAL (J2250 PER 1MG) As Ordered ONE; +PHENYLEPHRINE HCL 10 % OPHTH. SOL 5ML OS ONE; +TOBRADEX OPHTH SUSP 2.5 ML As Ordered ONE; +fentaNYL 100 MCG/2 ML INJECTION As Ordered ONE
[2021-07-28] MEDS ORDERED: TETRACAINE 0.5% OPHTH SOLN 4ML OS SCH (11:30)
[2021-07-28] MEDS ORDERED: PHENYLEPHRINE 2.5% OPHTH SOL 2ML OS SCH (11:30)
[2021-07-28] MEDS ORDERED: CYCLOPENTOLATE 1% OPHTH SOLN 2 ML BTL OS SCH (11:30)
[2021-07-28] MEDS ORDERED: FLURBIPROFEN 0.03% OPHTH SOLN 2.5 ML OS SCH (11:30)
[2021-07-28] MEDS ORDERED: hydrALAZINE 20MG/ML 1ML VIAL (J0360 PER 20MG) As Ordered ONE (13:31)
[2021-07-28] MEDS ORDERED: DUOVISC (0.50ML VISCOAT/0.85ML PROVISC) OPHTH KIT As Ordered ONE (13:44)
[2021-07-28] MEDS ORDERED: LABETALOL 100MG/20ML VIAL As Ordered ONE (13:48)
[2021-07-28] MEDS ORDERED: ACETYLCHOLINE OPHTH SOLN 1% 2ML (MIOCHOL-E) As Ordered ONE (13:56)
[2021-07-28 14:30] VITALS: BP 123/73
== END 2021-07-28 15:17 | disposition home or self-care (01) ==
LOC: M SDC 11:27
PROVIDERS: ATTEND Ophthalmology
DX: H25.12 Age-related nuclear cataract, left eye (principal); I10 Essential (primary) hypertension; M19.90 Unspecified osteoarthritis, unspecified site; Z79.01 Long term (current) use of anticoagulants; Z79.899 Other long term (current) drug therapy
CPT/HCPCS: 66984; J0360; J2250; J3010

== ENCOUNTER → 2022-05-22 | Outpatient (CLI) | payer OTHER ==
[~2022-05-22] MED LIST changes: -D31000TA2 PO; -LIDOCAINE 1% SDV 5ML VIAL As Ordered ONE; -LR 1,000 ML IV SCH; -MIDAZOLAM INJ 2MG/2ML VIAL (J2250 PER 1MG) As Ordered ONE; -PHENYLEPHRINE HCL 10 % OPHTH. SOL 5ML OS ONE; -TOBRADEX OPHTH SUSP 2.5 ML As Ordered ONE; +VITA100093 PO; -fentaNYL 100 MCG/2 ML INJECTION As Ordered ONE
[2022-05-23 17:08] LABS: PSA TOTAL 2.9 ng/mL (0.0-4.0)
== END ==
LOC: M LAB 08:22
PROVIDERS: ATTEND Urology
DX: N40.0 Benign prostatic hyperplasia without lower urinary tract symptoms (principal)

== ENCOUNTER → 2022-11-02 | Outpatient (CLI) | payer OTHER | LOC: M RAD 07:37 | PROVIDERS: ATTEND Family Medicine | DX: F17.220 Nicotine dependence, chewing tobacco, uncomplicated (principal); I77.811 Abdominal aortic ectasia ==

== ENCOUNTER → 2022-12-08 | Outpatient (CLI) | payer OTHER ==
[2022-12-08 15:08] LABS: BASO # 0.1 10^3/uL (0.0-0.2); BASO % 0.8 % (0.0-1.0); EOS # 0.2 10^3/uL (0.0-0.5); EOS % 2.3 % (0.0-3.0); HEMATOCRIT 51.2 % (42.0-52.0); HEMOGLOBIN 17.7 g/dl (13.5-17.5); LYMPH # 1.6 10^3/uL (1.5-5.0); LYMPH % 16.2 % (24.0-44.0); MEAN CORPUSCULAR HEMOGLOBIN 32.6 pg (27.0-33.0); MEAN CORPUSCULAR HGB CONC 34.6 g/dl (32.0-36.5); MEAN CORPUSCULAR VOLUME 94.3 fl (80.0-96.0); MONO # 0.8 10^3/uL (0.0-0.8); MONO % 7.9 % (2.0-8.0); NEUTROPHILS # 7.1 10^3/uL (1.5-8.5); NEUTROPHILS % 72.5 % (36.0-66.0); PLATELET COUNT, AUTOMATED 235 10^3/uL (150-450); RED BLOOD COUNT 5.43 10^6/uL (4.30-6.10); WHITE BLOOD COUNT 9.7 10^3/uL (4.0-10.0)
[2022-12-08 15:38] LABS: ALBUMIN 3.6 G/DL (3.2-5.2); ALKALINE PHOSPHATASE 68 U/L (46-116); ALT/SGPT 29 U/L (7.0-40); AST/SGOT 11 U/L (<34); BILIRUBIN,TOTAL 0.6 MG/DL (0.3-1.2); BLOOD UREA NITROGEN 19 MG/DL (9-23); CALCIUM LEVEL 9.4 MG/DL (8.3-10.6); CARBON DIOXIDE LEVEL 33 MMOL/L (20-31); CHLORIDE LEVEL 101 MMOL/L (98-107); CHOLESTEROL LEVEL 193 MG/DL (<200); CHOLESTEROL RISK RATIO 3.75 (<5); CREATININE FOR GFR 0.87 MG/DL (0.70-1.30); GLOMERULAR FILTRATION RATE > 60.0 (>42); GLUCOSE, FASTING 109 MG/DL (74-106); HDL CHOLESTEROL 51.4 MG/DL (>40); NON-HDL-C 141.6 MG/DL; POTASSIUM SERUM 3.7 MMOL/L (3.5-5.1); SODIUM LEVEL 139 MMOL/L (136-145); TOTAL PROTEIN 6.7 G/DL (5.7-8.2); TRIGLYCERIDES LEVEL 158 MG/DL (<150)
[2022-12-08 16:15] LABS: HEMOGLOBIN A1c 5.4 % (4.0-6.0)
== END ==
LOC: M LAB 14:39
PROVIDERS: ATTEND Family Medicine
DX: Z79.899 Other long term (current) drug therapy (principal); E66.9 Obesity, unspecified

== ENCOUNTER → 2024-03-27 | Outpatient (REF) | payer OTHER | LOC: M SFHCLERA 15:58 | PROVIDERS: ATTEND Family Medicine | DX: Z00.00 Encounter for general adult medical examination without abnormal findings (principal) ==

== ENCOUNTER → 2024-04-01 | Outpatient (CLI) | payer OTHER ==
[2024-04-01 16:49] LABS: BASO # 0.1 10^3/uL (0.0-0.2); BASO % 1.3 % (0.0-1.0); EOS # 0.3 10^3/uL (0.0-0.5); HEMATOCRIT 51.4 % (42.0-52.0); HEMOGLOBIN 17.2 g/dl (13.5-17.5); LYMPH # 1.2 10^3/uL (1.5-5.0); MEAN CORPUSCULAR HEMOGLOBIN 32.5 pg (27.0-33.0); MEAN CORPUSCULAR HGB CONC 33.5 g/dl (32.0-36.5); MONO # 0.8 10^3/uL (0.0-0.8); MONO % 10.1 % (2.0-8.0); NEUTROPHILS # 5.8 10^3/uL (1.5-8.5); NEUTROPHILS % 70.1 % (36.0-66.0); PLATELET COUNT, AUTOMATED 224 10^3/uL (150-450); WHITE BLOOD COUNT 8.3 10^3/uL (4.0-10.0)
[2024-04-01 17:04] LABS: HEMOGLOBIN A1c 5.2 % (4.0-6.0)
[2024-04-01 17:16] LABS: ALBUMIN 3.6 G/DL (3.2-5.2); ALKALINE PHOSPHATASE 68 U/L (46-116); ALT/SGPT 29 U/L (7.0-40); AST/SGOT 15 U/L (<34); BILIRUBIN,TOTAL 0.6 MG/DL (0.3-1.2); BLOOD UREA NITROGEN 12 MG/DL (9-23); CALCIUM LEVEL 9.9 MG/DL (8.3-10.6); CARBON DIOXIDE LEVEL 32 MMOL/L (20-31); CHLORIDE LEVEL 105 MMOL/L (98-107); CHOLESTEROL LEVEL 216 MG/DL (<200); CHOLESTEROL RISK RATIO 3.58 (<5); GLOMERULAR FILTRATION RATE > 60.0 (>42); GLUCOSE, FASTING 94 MG/DL (74-106); HDL CHOLESTEROL 60.2 MG/DL (>40); LDL CHOLESTEROL 139.6 MG/DL (<100); NON-HDL-C 155.8 MG/DL; POTASSIUM SERUM 4.7 MMOL/L (3.5-5.1); SODIUM LEVEL 142 MMOL/L (136-145); TRIGLYCERIDES LEVEL 81 MG/DL (<150)
== END ==
LOC: M WUC 10:46
PROVIDERS: ATTEND Family Medicine
DX: Z00.00 Encounter for general adult medical examination without abnormal findings (principal); M54.42 Lumbago with sciatica, left side; Z79.899 Other long term (current) drug therapy

== ENCOUNTER 2024-07-31 17:41 | Emergency (ER) | payer OTHER ==
[~2024-07-31] VITALS: Ht 177.8 cm; Wt 96.7 kg
[2024-07-31 21:10] VITALS: BP 148/87; TEMP 97.6; O2SAT 93
== END 2024-07-31 21:12 | disposition home or self-care (01) ==
LOC: M ED 17:41
DX: I70.212 Atherosclerosis of native arteries of extremities with intermittent claudication, left leg (principal); I10 Essential (primary) hypertension; N40.0 Benign prostatic hyperplasia without lower urinary tract symptoms; Z79.1 Long term (current) use of non-steroidal anti-inflammatories (NSAID); Z79.899 Other long term (current) drug therapy

== ENCOUNTER → 2024-08-27 | Outpatient (POV) | payer MEDICARE, OTHER, SELFPAY ==
[~2024-08-27] VITALS: Ht 175.3 cm; Wt 93.2 kg
[~2024-08-27] MED LIST changes: +ASPI81TA26 PO; +ATOR40TA75 PO; +GNP250TA9 PO; -RA S160C PO; +SAW160CA23 PO
[2024-08-27 08:06] VITALS: BP 130/82; O2SAT 96
== END ==
LOC: M IRPOV 07:52
PROVIDERS: ATTEND Radiology Diagnostic Radiology
DX: M79.604 Pain in right leg (principal); M79.605 Pain in left leg; I10 Essential (primary) hypertension; E78.5 Hyperlipidemia, unspecified; N40.1 Benign prostatic hyperplasia with lower urinary tract symptoms; L57.0 Actinic keratosis; F17.220 Nicotine dependence, chewing tobacco, uncomplicated; Z79.82 Long term (current) use of aspirin; Z79.899 Other long term (current) drug therapy; Z80.42 Family history of malignant neoplasm of prostate; Z83.3 Family history of diabetes mellitus; Z85.828 Personal history of other malignant neoplasm of skin

== ENCOUNTER → 2025-02-24 | Outpatient (CLI) | payer MEDICARE | LOC: M WUC 13:50 | PROVIDERS: ATTEND Nurse Practitioner Family | DX: M25.511 Pain in right shoulder (principal) ==

== ENCOUNTER → 2025-02-24 | Outpatient (CLI) | payer MEDICARE | LOC: M LAB 17:41 | PROVIDERS: ATTEND Urology | DX: N40.0 Benign prostatic hyperplasia without lower urinary tract symptoms (principal); M25.511 Pain in right shoulder; Z12.5 Encounter for screening for malignant neoplasm of prostate | CPT/HCPCS: 36415; 73000; G0103 ==